=== PATIENT | male | born 1980 | race Caucasian/White ===

== ENCOUNTER 2017-11-18 08:30 | Emergency (ER) ==
[2017-11-18 08:36] VITALS: BP 159/98; TEMP 99.6; BMI 30.7
[2017-11-18] MEDS ORDERED: NORCO 5-325 PO STA (08:45)
--- NOTE | 2017-11-18 09:29 | ED.PDOC ---
General ED Provider: Dr. HILLARY ALVAREZ Chief Complaint: Extremity Pain/Injury Stated Complaint: Patient states that this morning while getting his 4 limon off his truck sustained an injury to the Right lower leg. His tetanus is up to date. Time Seen by Physician: 08:45 Mode of Arrival: Wheelchair Information Source: Patient Exam Limitations: No limitations Nursing and Triage Documentation Reviewed and Agree: Yes Does patient meet sepsis criteria?: No System Inflammatory Response Syndrome: Not Applicable Sepsis Protocol: For patient's 13 years and over: Temp is 96.8 and below OR 101 and greater Pulse >90 BPM Resp >20/minute Acutely Altered Mental Status Are patient's symptoms suggestive of a new infection, such as: -Pneumonia -Skin, Soft Tissue -Endocarditis -UTI -Bone, Joint Infection -Implantable Device -Acute Abdominal Infection -Wound Infection -Meningitis -Blood Stream Catheter Infection -Unknown Musculoskeletal Complaint Exam - Lower Extremity Complaint/Exam Location of Pain: Reports: Right Mechanism of Injury: Reports: Trauma (with a 4 limon while trying to get it off a truck ) Onset/Duration: 2 hours ago Symptoms Are: Still present Onset of Pain: Reports: Immediate Initial Severity: Severe Current Severity: Severe Location: Reports: Discrete (mid linda) Character: Reports: Aching, Throbbing Alleviating: Reports: Rest Aggravating: Reports: Movement, Weight bearing, Prolonged standing Able to Bear Weight: No Associated Signs and Symptoms: Reports: Swelling (minimal ) Related History: Denies: Similar episode, Occupational injury DVT Risk Factors: Reports: None Septic Arthritis Risk Factors: Reports: None Related Surgical History: Reports: None Lower Extremity Findings: Present: Swelling (minimal), Tenderness. Absent: Ecchymosis, Abnormal contour, Rotation, Ligamentous instability, Laceration, Limited range of motion NV Bundle Intact Distal to Injury: Yes (Pulses intact ) Compartment Syndrome Risk Factors: Present: Pain. Absent: Paralysis, Pallor, Pulselessness, Paresthesias Yarely's Sign Present: No Lower Extremities Picture: 1 - Tenderness with minimal swelling Differential Diagnoses: Compartment Syndrome, Fracture, Strain, Sprain Review of Systems - Review Of Systems Constitutional: Reports: No symptoms Eyes: Reports: No symptoms Ears, Nose, Mouth, Throat: Reports: No symptoms Respiratory: Reports: No symptoms Cardiac: Reports: No symptoms GI: Reports: No symptoms : Reports: No symptoms Musculoskeletal: Reports: Muscle pain (mid right linda area ) Skin: Reports: Bruising (Left calf ) Neurological: Reports: No symptoms Endocrine: Reports: No symptoms Hematologic/Lymphatic: Reports: No symptoms All Other Systems: Reviewed and Negative Past Medical History - Past Medical History Previously Healthy: Yes Endocrine: Reports: None Cardiovascular: Reports: None Respiratory: Reports: None Hematological: Reports: None Gastrointestinal: Reports: None Genitourinary: Reports: None Neuro/Psych: Reports: None Musculoskeletal: Reports: None Cancer: Reports: None - Surgical History General Surgical History: Reports: Orthopedic (Right thumb surgery ) - Family History Family History: Reports: None - Social History Smoking Status: Never smoker Hx Substance Use: No Alcohol Screening: Occasionally - Immunizations Tetanus Shot up to Date: Yes Physical Exam - Physical Exam Appearance: Ill-appearing Ill-appearing: Mild Pain Distress: Severe Neck: Supple Respiratory: Airway patent, Breath sounds clear, Breath sounds equal, Respirations nonlabored Cardiovascular: RRR, Pulses normal, No rub, No murmur GI/: Soft, Nontender, No masses, Bowel sounds normal, No Organomegaly Musculoskeletal: Normal strength, Edema (minimal on the right mid linda), Calf tenderness (right ) Skin: Warm, Dry, Normal color Neurological: Sensation intact, Motor intact, Reflexes intact, Cranial nerves intact, Alert, Oriented Psychiatric: Anxious Interpretation - Radiology Interpretation Radiology Interpretation By: ED Physician Radiology Results: Positive Exam Interpreted: Other (Slightly displaced mid fibular fracture ) Critical Care Note - Critical Care Note Total Time (mins): 0 Course - Course Orders, Labs, Meds: Orders Category Date Time Status Hydrocodone Bit/Acetaminophen [Richton 5-325] MEDS 11/18/17 08:45 Discontinued 1 tab PO ONCE STA TIBIA/FIBULA, RIGHT 2 VIEW Stat RADS 11/18/17 08:45 Taken Medications Discontinued Medications Generic Name Dose Route Start Last Admin Trade Name Freq PRN Reason Stop Dose Admin Hydrocodone Bitart/Acetaminophen 1 tab 11/18/17 08:45 11/18/17 09:01 Richton 5-325 PO 11/18/17 08:46 1 tab ONCE STA Administration Vital Signs: Temp Pulse Resp BP Pulse Ox 11/18/17 08:33 99.6 F 80 20 159/98 H 99 Departure - Departure Time of Disposition: 09:28 Disposition: HOME SELF-CARE Discharge Problem: Closed fibular fracture Qualifiers: Encounter type: initial encounter Fibula location: shaft Fracture morphology: oblique Fracture alignment: displaced Laterality: right Qualified Code(s): S82.431A - Displaced oblique fracture of shaft of right fibula, initial encounter for closed fracture Instructions: Leg Fracture (ED) Condition: Stable Pt referred to PMD for follow-up: Yes (PCP for ortho referal ) IPMP verified?: No (Prescribing less than one week supply ) Additional Instructions: Keep leg elevated Follow up with PCP for orthopedic referral Return if pain gets worse Take Medication as prescribed Use crutches Prescriptions: Hydrocodone/Acetaminophen [Richton 5-325 Tablet] 1 tab PO Q6HR PRN #20 tablet PRN Reason: PAIN Ibuprofen [Motrin] 600 mg PO Q6H PRN #30 tablet PRN Reason: Analgesia Allergies/Adverse Reactions: Allergies No Known Allergies Allergy (Unverified 11/18/17 08:36) Home Medications: Ambulatory Orders Hydrocodone/Acetaminophen [Richton 5-325 Tablet] 1 tab PO Q6HR PRN #20 tablet Ibuprofen [Motrin] 600 mg PO Q6H PRN #30 tablet 11/18/17 Disposition Discussed With: Patient, Family
--- NOTE | 2017-11-18 10:06 | DI ---
Exam: Right lower leg two-view History: Trauma Findings / impression: Distal fibula diaphysis fracture displaced one-quarter shaft width. No addit ional bony abnormalities are seen.
== END 2017-11-18 09:45 | disposition home or self-care (01) ==
LOC: ED 08:30
DX: S82.431A Displaced oblique fracture of shaft of right fibula, initial encounter for closed fracture (principal); W20.8XXA Other cause of strike by thrown, projected or falling object, initial encounter
CPT/HCPCS: 99283